=== PATIENT | female | born 1995 | race Caucasian/White ===

== ENCOUNTER 2016-09-19 11:03 | Emergency (ER) | payer SELFPAY ==
[2016-09-19] MEDS ORDERED: PREDNISONE10 MG PO (11:14)
== END 2016-09-19 11:30 | disposition home or self-care (01) ==
LOC: ED 11:03
DX: L23.7 Allergic contact dermatitis due to plants, except food (principal); R03.0 Elevated blood-pressure reading, without diagnosis of hypertension